=== PATIENT | male | born 1980 ===

== ENCOUNTER 2018-05-12 19:56 | Emergency (ER) | payer SELFPAY ==
[2018-05-12 22:24] LABS: BASO % 0.5 % (0.0-2.0); EOS # 0.2 K/uL (0.0-0.7); EOS % 2.4 % (0.0-4.0); HEMOGLOBIN 13.8 g/dL (12.0-18.0); LYMPH # 3.5 K/uL (1.0-4.3); LYMPH % 45.8 % (20.0-40.0); MEAN CELL VOLUME 89.2 fL (80.0-94.0); MEAN CORPUSCULAR HEMOGLOBIN 31.3 pg (27.0-31.0); MEAN CORPUSCULAR HGB CONC 35.1 g/dL (33.0-37.0); MEAN PLATELET VOLUME 8.6 fL (7.2-11.7); MONO # 0.6 K/uL (0.0-0.8); MONO % 7.4 % (0.0-10.0); NEUT # 3.3 K/uL (1.8-7.0); NEUT % 43.9 % (50.0-75.0); NRBC % 0.1 % (0.0-2.0); RBC 4.41 Mil/uL (4.40-5.90); RED CELL DISTRIBUTION WIDTH 12.5 % (11.5-14.5); WHITE BLOOD COUNT 7.6 K/uL (4.8-10.8)
[2018-05-12 22:26] LABS: URINE BILIRUBIN NEGATIVE (NEGATIVE); URINE BLOOD NEGATIVE (NEGATIVE); URINE CLARITY Clear (Clear); URINE COLOR Yellow (YELLOW); URINE GLUCOSE (UA) NORMAL (Normal); URINE LEUKOCYTE ESTERASE NEG Leu/uL (Negative); URINE PROTEIN NEGATIVE (NEGATIVE); URINE UROBILINOGEN NORMAL mg/dL (0.2-1.0)
[2018-05-12] MEDS ORDERED: Sodium Chloride 0.9% 1,000 ML ONE (22:30)
[2018-05-12] MEDS: Sodium Chloride 0.9% 500 ML IV ONE (22:33)
[2018-05-12 22:38] LABS: ALB/GLOB RATIO 1.5 (1.0-2.1); ALBUMIN 4.1 g/dL (3.5-5.0); ALT/SGPT 55 U/L (21-72); AST/SGOT 19 U/L (17-59); BLOOD UREA NITROGEN 17 mg/dL (9-20); CALCIUM 8.9 mg/dl (8.6-10.4); GFR AFRICAN-AMERICAN > 60; GFR NON-AFRICAN AMERICAN > 60
[2018-05-12] MEDS ORDERED: Iodixanol 320 mg/ml 150 ml Bottle IV ONE (23:15)
--- NOTE | 2018-05-13 00:55 | C.PDOC ---
History Of Present Illness 37 y/o male presented to the ED c/o pain in the left lower quadrant and left groin for the past week. Patient also noticed a lump in the left inguinal area that has gotten progressively worse. Patient denies nausea, vomiting, diarrhea, or UTI symptoms. Time Seen by Provider: 05/12/18 21:28 Chief Complaint (Nursing): Groin Pain History Per: Patient History/Exam Limitations: no limitations Onset/Duration Of Symptoms: Days Current Symptoms Are (Timing): Still Present Quality Of Discomfort: "Pain" Associated Symptoms: denies: Fever, Chills, Nausea, Vomiting, Diarrhea, Urinary Symptoms Recent travel outside of the [place]: No Past Medical History Reviewed: Historical Data, Nursing Documentation, Vital Signs Vital Signs: Last Vital Signs Temp 97.7 F 05/13/18 00:59 Pulse 55 L 05/13/18 00:59 Resp 18 05/13/18 00:59 BP 105/65 05/13/18 00:59 Pulse Ox 100 05/13/18 01:36 Surgical History: No Surg Hx Family History: States: No Known Family Hx - Social History Hx Alcohol Use: No Hx Substance Use: No Review Of Systems Gastrointestinal: Positive for: Abdominal Pain. Negative for: Nausea, Vomiting , Diarrhea Genitourinary: Positive for: Other (Left inguinal lump). Negative for: Dysuria , Frequency, Hematuria Neurological: Negative for: Weakness, Numbness Physical Exam - Physical Exam Appears: Non-toxic Skin: Warm, Dry Head: Atraumatic, Normacephalic Eye(s): bilateral: Normal Inspection Oral Mucosa: Moist Gastrointestinal/Abdominal: Soft, Tenderness (mild LLQ), No Distention, No Rebound, Hernia, Other (mobile mass LLQ) Back: No CVA Tenderness Male Genital: No Testicular Tenderness, No Testicular Swelling, No Scrotal Swelling, Other (palpable indurated tender mass to left inguinal area, not consistent with lymph node.) Neurological/Psych: Oriented x3, Normal Speech Gait: Steady ED Course And Treatment - Laboratory Results Result Diagrams: 05/12/18 22:20 05/12/18 22:20 O2 Sat by Pulse Oximetry: 100 (RA) Pulse Ox Interpretation: Normal - CT Scan/US CT Abdomen/Pelvis Other Rad Studies (CT/US): Read By Radiologist, Radiology Report Reviewed CT/US Interpretation: EXAM: CT Abdomen and Pelvis With Intravenous Contrast. EXAM DATE/TIME: 05/12/2018 9:49 PM. CLINICAL HISTORY: 37 years old, male; Pain ; Abdominal pain; Other: Llq; Additional info: Llq abd pain and tender palp. mass , inguinal bulge. TECHNIQUE: Axial computed tomography images of the abdomen and pelvis with intravenous contrast. All CT. scans at this facility use at least one of these dose optimization techniques: automated exposure. control; mA and/or kV adjustment per patient size (includes targeted exams where dose is matched to. clinical indication); or iterative reconstruction. CONTRAST: 100 mL of Visipaque 320 administered intravenously. COMPARISON: No relevant prior studies available. FINDINGS: Lung bases: Unremarkable. No mass. No consolidation. ABDOMEN: Liver: Unremarkable. No mass. Gallbladder and bile ducts: Unremarkable. No calcified stones. No ductal dilation. Pancreas : Unremarkable. No mass. No ductal dilation. Spleen: Unremarkable. No splenomegaly. Adrenals: Unremarkable. No mass. Kidneys and ureters: Unremarkable. No solid mass. No hydronephrosis. Stomach and bowel: No bowel containing hernia. Possible small fat herniating into the left inguinal. canal. No obstruction. No mucosal thickening. JANNA MCGINNIS | Preliminary Radiology Report. CONFIDENTIALITY STATEMENT. This report is intended only for the use of the referring physician , and only in accordance with law, If you received this in error, call . Page 2 of 2. PELVIS: Appendix: No findings to suggest acute appendicitis. Bladder: Unremarkable. No mass. Reproductive: Unremarkable as visualized. ABDOMEN and PELVIS: Intraperitoneal space: Unremarkable. No free air. No significant fluid collection. Bones/joints: No acute fracture. No dislocation. Soft tissues: Simple fluid in the left inguinal canal measures 2.6 x 1.8 x 2.8 cm. Vasculature: Unremarkable. No abdominal aortic aneurysm. Lymph nodes: Unremarkable. No enlarged lymph nodes. IMPRESSION: Simple fluid in the left inguinal canal measures 2.6 x 1.8 x 2.8 cm Progress Note: CT of abdomen and pelvis, labs, and urinalysis were ordered. Patient was given Toradal for pain. On reevaluation patient reports improvement of pain, he is resting comfortably in no acute distress, vitals are stable, CT and lab results discussed with patient who was advised to follow up with PMD, or return if symptoms worsen. Patient understands and agrees with plan. 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 - Scribe Statement The provider has reviewed the documentation as recorded by the Lisaibe Heber Aleman All medical record entries made by the John were at my direction and personally dictated by me. I have reviewed the chart and agree that the record accurately reflects my personal performance of the history, physical exam, medical decision making, and the department course for this patient. I have also personally directed, reviewed, and agree with the discharge instructions and disposition.
[2018-05-13 01:01] VITALS: O2SAT 100
[2018-05-13 03:16] VITALS: BP 102/61; PULSE 65; RESP 16; TEMP 97.8
--- NOTE | 2018-05-13 07:55 | CT ---
PROCEDURE: CT Abdomen and Pelvis with contrast HISTORY: LLQ abd pain and tender palp mass , inguinal bulge COMPARISON: None. TECHNIQUE: CT scan of the abdomen pelvis was performed after the administration of IV contrast. Lack of oral contrast limits evaluation of bowel lumen. Coronal and sagittal reconstructions were also acquired. Contrast Dose: 100 cc Visipaque 320 IV contrast Radiation dose: Total exam DLP = 453 mGy-cm. FINDINGS: LOWER THORAX: Visualized lung bases demonstrate a partially visualized calcified granuloma in the right middle lobe. Punctate calcified granuloma noted right lower lobe. Minimal posterior dependent atelectasis is noted. Small area of linear scarring versus atelectasis noted in the right lower lobe. Heart is normal in size. LIVER: Unremarkable. GALLBLADDER AND BILE DUCTS: Unremarkable. PANCREAS: Unremarkable. SPLEEN: Unremarkable. ADRENALS: Unremarkable. KIDNEYS AND URETERS: Unremarkable. No hydronephrosis. VASCULATURE: The aorta is normal in caliber. Accessory right renal artery noted. STOMACH AND BOWEL: There is no abnormal small or large bowel dilatation. Moderate large amount of stool noted throughout the colon. APPENDIX: Normal appendix. PERITONEUM: No free fluid. No free air. LYMPH NODES: There is no significant abdominal or pelvic lymphadenopathy. BLADDER: Unremarkable. REPRODUCTIVE: Prostate is unremarkable. BONES: No acute fracture identified. OTHER FINDINGS: Small amount of fluid noted in the left inguinal canal measuring 2.5 x 1.8 x 3.2 cm. IMPRESSION: Fluid noted in the left inguinal canal measuring up to 3.2 cm. Correlate clinically. [id number] amount stool throughout the colon. Additional findings as above. Preliminary impression was provided by [facility]. Findings are concordant.
== END 2018-05-13 03:16 | disposition home or self-care (01) ==
LOC: C.ER 19:56
DX: K40.90 Unilateral inguinal hernia, without obstruction or gangrene, not specified as recurrent (principal)
CPT/HCPCS: 74177; 80053; 81001; 85025; 96361; 96374; 99283; J1885; J7040; Q9967